=== PATIENT | male | born 1945 | race Hispanic/Latino ===

== ENCOUNTER → 2020-05-02 | Outpatient (CLI) | payer OTHER ==
[~2020-05-02] MED LIST: CLOP75TA32 PO; DORZ10DR9 OU; GABA-531 PO; HYPROMELLOSE 0.3% OU; ISOS30TA6 PO; LORA10TA7 PO; LOSA50TA64 PO; MELO-108 PO; METO25TA6 PO; MIRT15TA6 PO; MULT-248 PO; PANT40TA25 PO; PRAZ2CAP2 PO; ROSU10TA22 PO; VENL100T4 PO; XALA2.5OS OU
== END | disposition home or self-care (01) ==
LOC: RAH 09:35
PROVIDERS: ATTEND Internal Medicine Gastroenterology
DX: K76.0 Fatty (change of) liver, not elsewhere classified (principal); K76.9 Liver disease, unspecified
CPT/HCPCS: 76700